=== PATIENT | male | born 1960 | race African-American/Black ===

== ENCOUNTER 2021-02-18 09:47 | Emergency (ER) | payer OTHER ==
[~2021-02-18] VITALS: Ht 175.3 cm; Wt 100.0 kg
[2021-02-18] MEDS ORDERED: CRES10 PO (10:14)
[2021-02-18] MEDS ORDERED: VALS1TAB75 PO (10:14)
[2021-02-18] MEDS ORDERED: METF-873 PO (10:14)
[2021-02-18] MEDS ORDERED: AMLO10TA80 PO (10:14)
[2021-02-18] MEDS ORDERED: GLIM4TAB36 PO (10:14)
[2021-02-18] MEDS ORDERED: ASPIRIN 325MG EC TABLET PO ONE (10:30)
[2021-02-18] MEDS ORDERED: NITROGLYCERIN 0.4MG TABLET SL SL PRN (10:30)
[2021-02-18 11:01] LABS: BASOPHILS % 1.2 % (0.0-2.0); EOSINOPHILS % 1.4 % (0.0-5.0); HEMATOCRIT. 42.2 % (42.0-52.0); HEMOGLOBIN. 13.8 g/dL (14.0-18.0); LYMPHOCYTES % 30.6 % (20.0-50.0); MEAN CORPUSCULAR HEMOGLOBIN 26.4 pg (28.0-32.0); MEAN CORPUSCULAR VOLUME 80.9 fL (80.0-94.0); MEAN PLATELET VOLUME 8.1 fl (7.4-10.4); NEUTROPHILS % 58.8 % (40.0-76.0); PLATELET 246 x1000/uL (130-400); RED BLOOD CELL COUNT 5.22 mill/uL (4.7-6.1); RED CELL DISTRIBUTION WIDTH 14.2 % (11.6-14.6)
[2021-02-18 11:06] LABS: CHLORIDE 107 mEq/L (98-107)
[2021-02-18 11:10] LABS: ETHANOL BLOOD < 10 mg/dL
[2021-02-18] MEDS ORDERED: BACLOFEN 10MG TABLET PO ONE (11:30)
[2021-02-18] MEDS ORDERED: ACETAMINOPHEN 325MG TABLET PO ONE (11:30)
[2021-02-18] MEDS ORDERED: LIDOCAINE 5% PATCH TOP SCH (11:30)
[2021-02-18 12:05] LABS: *AMPHETAMINES SCREEN URINE NEGATIVE (NEGATIVE); *BARBITURATES SCREEN URINE NEGATIVE (NEGATIVE); *BENZODIAZEPINES SCREEN URINE NEGATIVE (NEGATIVE); *COCAINE SCREEN URINE NEGATIVE (NEGATIVE); METHADONE URINE SCREEN NEGATIVE (NEGATIVE); OPIATES URINE SCREEN NEGATIVE (NEGATIVE)
[2021-02-18 12:06] LABS: CANNABINOID URINE SCREEN NEGATIVE (NEGATIVE); PHENCYCLIDINE URINE SCREEN NEGATIVE (NEGATIVE)
[2021-02-18 15:34] VITALS: BP 156/84
== END 2021-02-18 16:11 | disposition short-term general hospital (02) ==
LOC: ER 09:47 → CANBEDREQ 18:27
DX: R07.89 Other chest pain (principal); M47.892 Other spondylosis, cervical region; E11.9 Type 2 diabetes mellitus without complications; I10 Essential (primary) hypertension; E78.00 Pure hypercholesterolemia, unspecified; E03.9 Hypothyroidism, unspecified; Z79.84 Long term (current) use of oral hypoglycemic drugs
CPT/HCPCS: 36415; 71045; 80053; 80305; 80320; 83880; 84484; 85025; 87426; 93005; 99285; G0480